=== PATIENT | male | born 1950 | race Caucasian/White ===

== ENCOUNTER 2023-01-08 08:36 | Outpatient (REF) | payer OTHER, SELFPAY | END 2023-01-08 08:37 | disposition home or self-care (01) | LOC: HO.HOSX 08:36 | PROVIDERS: Visit Provider Orthopaedic Surgery | DX: Z13.89 Encounter for screening for other disorder (principal) ==

== ENCOUNTER 2023-01-09 12:14 | Outpatient (AMB) | payer MEDICARE, SELFPAY ==
--- NOTE | 2023-01-09 12:35 | A.OFFVIS_ITS ---
Intake Intake Visit Reasons: New Patient - right knee pain Intake Note: Barney is a 72 year old male who presents today as a new patient for his right knee pain. He describes his pain as sharp and severe in nature. His pain has gotten worse over the last few years in spite of continued non operative treatments. He has done physical therapy for 12 weeks over the last 6 months which aggravated his pain. He has also tried Tylenol and anti-inflammatory medicines which gave him minimal relief. He has had multiple cortisone injections which gave him only mild relief. He has also had viscosupplementation injections which gave him very good relief. His last viscosupplementation injection was several years ago. He wishes to hold off on surgery for as long as possible. He denies any locking or giving way. Allergies codeine Allergy (Unknown, Verified 01/09/23 12:41) Unknown Medication List - Last Reconciled 01/09/23 by Amanuel Cooper MD lisinopril 20 mg PO DAILY lorazepam 0.5 mg PO DAILY PRN timolol maleate 0.5% 0 drps ophthalmic-Right BID HPI New Patient - right knee pain HPI Details 72-year-old male who presents in the office today, as a new patient, for an evaluation of right knee pain. The patient reports an ongoing achiness of many years. He states this has increased in the last 3 days. He reports his pain is along the lateral aspect of the right knee. He states his pain increases when going up stairs. He is interested in a cortisone injection while in the office today. Patient has a history of Gel injections with 4 years of relief. A history of cortisone injections with 5+ years of relief. Patient has a surgical history of left knee arthroscopy about 25 years ago. [facility] Medical History (Updated 01/09/23 @ 12:44 by Diego Randle) History of high blood pressure Social History (Updated 01/09/23 @ 12:44 by iDego Randle) Alcohol intake: former Tobacco use type: Cigar Cigarettes Per Day: 1 Current occupational status: retired Current occupation: right hand dominant Review of Systems Const All systems reviewed & are unremarkable except as noted in HPI and below Physical Exam Const Other: Well-nourished well-developed very friendly male awake alert and oriented x3 in no acute distress General: cooperative, healthy appearing, comfortable, no acute distress, well de veloped and alert Orientation/consciousness: patient oriented x3 HEENT Head: Yes normal to inspection, Yes normocephalic and Yes atraumatic Eyes General: appearance normal, both eyes and all related structures Resp Effort & Inspection: normal respiratory effort and able to speak in complete sentences Cardio Rate: regular rate Peripheral pulses: Peripheral pulses 2+ throughout GI Palpation (GI): Soft to palpation Skin Lesions: no lesions Rashes: no rashes Neuro General: patient oriented x3 Extrem Other: Bilateral lower extremity examination shows good capillary refill, no skin lesions noted, normal sensation light touch Right knee examination shows a minimal effusion, mild crepitus with range of motion, pain with range of motion, range of motion from -3 degrees to 115 degrees, no instability Results Reviewed Results Reviewed: X-rays of the patient's right knee taken today show moderate joint space narrowing most significant in the medial compartment, subchondral sclerosis, no acute bony abnormalities Assessment & Plan Assessment & Plan (1) Right knee pain: Code(s): M25.561 - Pain in right knee Plan: Mr. King presents with right knee pain due to degenerative joint disease. I had a lengthy discussion with the patient regarding the treatment options. He wishes to hold off on total knee replacement surgery for as long as possible. I agree with this plan. He has had multiple cortisone injections over the last few years which gave him minimal relief. Thus, I will see whether or not his insurance company will cover another viscosupplementation injection. I will see him back once the injection is available. If he fails continued non operative treatments we will further discuss the risks and benefits of right total knee replacement surgery. Feel free to call me at any time should questions regarding his orthopedic management arise. Thank you very much for asking me to see this very friendly gentleman. Orders: Orders XR knee RT 3V Today M25.561 - Pain in right knee XR knee RT 2V Today M25.569 - Pain in unspecified knee XR knee standing BI Today M25.569 - Pain in unspecified knee Patient Instructions: Scribed for Sherrie Lawton PA-C by Hermelinda Moreno outside medical sales representative, on 01/09/2023 at 12:21 pm, EST. Your attestation Coding Level of Care Code Est Pt Level 2 (22640) Diagnoses Right knee pain M25.201
== END 2023-01-09 13:19 | disposition home or self-care (01) ==
PROVIDERS: PCP Internal Medicine; Visit Provider Physician Assistant
DX: M25.561 Pain in right knee (principal)
CPT/HCPCS: 99202

== ENCOUNTER 2023-01-09 12:25 | Outpatient (REF) | payer MEDICARE, SELFPAY ==
--- NOTE | ~2023-01-09 | XR_ITS ---
Examination: X-ray knee, right INDICATION: Pain in unspecified knee. COMPARISON: None. TECHNIQUE: Bilateral upright views of both knees and lateral and sunrise views of the right knee FINDINGS: No displaced fracture. There are moderate degenerative changes in the right knee greatest in the medial compartment with cartilage space loss. Small marginal osteophyte formation. There is no joint effusion. Mild to moderate degenerative changes in the left medial compartment. XR/XR knee RT 2V IMPRESSION: Moderate degenerative changes in the right knee greatest in the medial compartment.
--- NOTE | ~2023-01-09 | XR_ITS ---
Examination: X-ray knee, right INDICATION: Pain in unspecified knee. COMPARISON: None. TECHNIQUE: Bilateral upright views of both knees and lateral and sunrise views of the right knee FINDINGS: No displaced fracture. There are moderate degenerative changes in the right knee greatest in the medial compartment with cartilage space loss. Small marginal osteophyte formation. There is no joint effusion. Mild to moderate degenerative changes in the left medial compartment. XR/XR knee standing BI IMPRESSION: Moderate degenerative changes in the right knee greatest in the medial compartment.
== END 2023-01-09 12:26 | disposition home or self-care (01) ==
LOC: HO.HOSX 12:25
PROVIDERS: Visit Provider Physician Assistant
DX: M25.561 Pain in right knee (principal)
CPT/HCPCS: 73560; 73565

== ENCOUNTER 2023-02-07 13:16 | Outpatient (AMB) | payer MEDICARE, SELFPAY ==
--- NOTE | 2023-02-07 13:23 | MHC.OFFVIS ---
Intake Intake Visit Reasons: OV-Euflexxa #1, Right Knee Intake Note: Barney is a 72 year old male who presents with complaints of progressively worsening right knee pain. He describes his pain as sharp in nature. His pain has gotten worse over the last year in spite of continued non operative treatments. He has had cortisone injections in the past which gave him minimal relief. He has also had viscosupplementation injections which gave him good relief. He has tried Tylenol and anti-inflammatory medicines which gave him only mild relief. He has also done physical therapy exercises which aggravated his pain. He wishes to hold off on surgery for as long as possible. Allergies codeine Allergy (Unknown, Verified 02/07/23 13:30) Unknown Medication List - Last Reconciled 02/07/23 by Amanuel Cooper MD lisinopril 20 mg PO DAILY lorazepam 0.5 mg PO DAILY PRN timolol maleate 0.5% 0 drps ophthalmic-Right BID [facility] Medical History (Updated 02/07/23 @ 13:54 by Amanuel Cooper MD) History of high blood pressure Social History (Updated 01/09/23 @ 12:44 by Diego Randle) Alcohol intake: former Tobacco use type: Cigar Cigarettes Per Day: 1 Current occupational status: retired Current occupation: right hand dominant Physical Exam Const Other: Well-nourished well-developed very friendly male awake alert and oriented x3 in no acute distress Extrem Other: Bilateral lower extremity examination shows good capillary refill, no skin lesions noted, normal sensation light touch Right knee examination shows a minimal effusion, palpable crepitus with range of motion, pain with range of motion, range of motion from -3 degrees to 115 degrees, no instability Office Procedures Joint Injection/Drain Joint Injection/Drain Primary Site: right knee Prep: site was prepped using aseptic technique Injected: 20 mg of (Euflexxa) and 1% plain lidocaine Procedure: The patient tolerated the procedure well Coding 99409 - Large joint Procedure code (CPT) selection complete Results Reviewed Results Reviewed: 02/07/23 13:21 Hyaluronate Sodium [Euflexxa] 20 mg INTRAARTIC .STK-MED ONE Lidocaine HCl 2 % MPF [Xylocaine 2 % MPF] 5 ml .ROUTE .STK-MED ONE X-rays of the patient's right knee show joint space narrowing, subchondral sclerosis, no acute bony abnormalities Assessment & Plan Assessment & Plan (1) Arthritis of right knee: Code(s): M17.11 - Unilateral primary osteoarthritis, right knee Plan: Mr. King presents with progressively worsening right knee pain due to degenerative joint disease. I had a lengthy discussion with the patient regarding the treatment options. The patient has not gotten good relief from cortisone injections in the past. He has gotten relief from viscosupplementation injections. Thus, the risks and benefits of a viscosupplementation series of injections were discussed at length with the patient. The patient wished to proceed. The patient tolerated the injection well. He will continue with his activity modifications. He will follow-up as instructed. Feel free to call me at any time should questions regarding his orthopedic management arise. I spent 22 minutes in reviewing the patient's records and imaging studies, seeing the patient and documenting in the medical record. Orders: Orders AMB Joint Injection/Aspiration Today M17.11 - Unilateral primary osteoarthritis, right knee Coding Level of Care Code Est Pt Level 2 (61489) Diagnoses Arthritis of right knee M17.11 CPT Codes Coding - 80945 Large joint: 61419 - Large joint ([id number])
== END 2023-02-07 13:53 | disposition home or self-care (01) ==
PROVIDERS: PCP Internal Medicine; Visit Provider Orthopaedic Surgery
DX: M17.11 Unilateral primary osteoarthritis, right knee (principal)
CPT/HCPCS: 20610; 99214

== ENCOUNTER → 2023-02-07 13:16 | Outpatient (BNVA) | payer MEDICARE, SELFPAY | PROVIDERS: PCP Internal Medicine; Visit Provider Orthopaedic Surgery | DX: M17.11 Unilateral primary osteoarthritis, right knee (principal) | CPT/HCPCS: 20610; J7323 ==

== ENCOUNTER 2023-02-14 13:14 | Outpatient (AMB) | payer MEDICARE, SELFPAY ==
--- NOTE | 2023-02-14 13:17 | MHC.OFFVIS ---
Intake Intake Visit Reasons: OV-Euflexxa #2, Right Knee Intake Note: Barney is a 72 year old male who presnets today for his second Euflexxa Injection. He states that he op mild relief from his 1st injection last week. He denies any fevers or chills. Allergies codeine Allergy (Unknown, Verified 02/07/23 13:30) Unknown [facility] Medical History (Updated 02/07/23 @ 13:54 by Amanuel Cooper MD) History of high blood pressure Social History (Updated 01/09/23 @ 12:44 by Diego Randle) Alcohol intake: former Tobacco use type: Cigar Cigarettes Per Day: 1 Current occupational status: retired Current occupation: right hand dominant Physical Exam Const Other: Well-nourished well-developed very friendly male awake alert and oriented x3 in no acute distress Extrem Other: Right knee examination shows a minimal effusion, palpable crepitus with range of motion, pain with range of motion, no instability Office Procedures Joint Injection/Drain Joint Injection/Drain Primary Site: right knee Prep: site was prepped using aseptic technique Injected: 20 mg of (Euflexxa) and 1% plain lidocaine Procedure: The patient tolerated the procedure well Coding - Large joint Procedure code (CPT) selection complete Results Reviewed Results Reviewed: 02/14/23 13:14 Hyaluronate Sodium [Euflexxa] 20 mg INTRAARTIC .STK-MED ONE Lidocaine HCl 2 % MPF [Xylocaine 2 % MPF] 5 ml .ROUTE .STK-MED ONE Assessment & Plan Assessment & Plan (1) Arthritis of right knee: Code(s): M17.11 - Unilateral primary osteoarthritis, right knee Plan: Mr. King presents with right knee pain due to degenerative joint disease. The risks and benefits of a 2nd Euflexxa injection were discussed at length with the patient. The patient wished to proceed. He tolerated the injection well. He will continue with his home exercise program. He will follow-up as scheduled. Feel free to call me at any time should questions regarding his orthopedic management arise. I spent 20 minutes in reviewing the patient's records and imaging studies, seeing the patient and documenting in the medical record. Orders: Orders AMB Joint Injection/Aspiration Today M17.11 - Unilateral primary osteoarthritis, right knee Coding Level of Care Code Procedure Only Diagnoses Arthritis of right knee M17.11 CPT Codes Coding - Large joint: 76711 - Large joint ([id number])
== END 2023-02-14 13:34 | disposition home or self-care (01) ==
PROVIDERS: PCP Internal Medicine; Visit Provider Orthopaedic Surgery
DX: M17.11 Unilateral primary osteoarthritis, right knee (principal)
CPT/HCPCS: 20610

== ENCOUNTER → 2023-02-14 13:14 | Outpatient (BNVA) | payer MEDICARE, SELFPAY | PROVIDERS: PCP Internal Medicine; Visit Provider Orthopaedic Surgery | DX: M17.11 Unilateral primary osteoarthritis, right knee (principal); I10 Essential (primary) hypertension | CPT/HCPCS: 20610; J7323 ==

== ENCOUNTER 2023-02-21 13:18 | Outpatient (AMB) | payer MEDICARE, SELFPAY ==
--- NOTE | 2023-02-21 14:03 | MHC.OFFVIS ---
Intake Intake Visit Reasons: OV-Euflexxa #3, Right Knee Intake Note: Mr. King presents for routine follow-up after undergoing to Euflexxa injections given into his right knee. He states that he has gotten fairly good relief from the injections. He denies any fevers or chills. Allergies codeine Allergy (Unknown, Verified 02/07/23 13:30) Unknown Medication List - Last Reconciled 02/21/23 by Amanuel Cooper MD lisinopril 20 mg PO DAILY lorazepam 0.5 mg PO DAILY PRN timolol maleate 0.5% 0 drps ophthalmic-Right BID [facility] Medical History (Updated 02/07/23 @ 13:54 by Amanuel Cooper MD) History of high blood pressure Social History (Updated 01/09/23 @ 12:44 by Diego Randle) Alcohol intake: former Tobacco use type: Cigar Cigarettes Per Day: 1 Current occupational status: retired Current occupation: right hand dominant Physical Exam Extrem Other: Physical examination of the patient's right knee shows a minimal effusion, palpable crepitus with range of motion, pain with range of motion, no instability Office Procedures Joint Injection/Drain Joint Injection/Drain Primary Site: right knee Prep: site was prepped using aseptic technique Injected: 20 mg of (Euflexxa) and 1% plain lidocaine Procedure: The patient tolerated the procedure well Coding 67800 - Large joint Procedure code (CPT) selection complete Results Reviewed Results Reviewed: 02/21/23 13:20 Lidocaine HCl 2 % MPF [Xylocaine 2 % MPF] 5 ml .ROUTE .STK-MED ONE 02/21/23 13:23 Hyaluronate Sodium [Euflexxa] 20 mg INTRAARTIC .STK-MED ONE X-rays of the patient's right knee show joint space narrowing, subchondral sclerosis, no acute bony abnormalities Assessment & Plan Assessment & Plan (1) Arthritis of right knee: Code(s): M17.11 - Unilateral primary osteoarthritis, right knee Plan: Mr. King presents with right knee pain due to degenerative joint disease. I had a lengthy discussion with the patient regarding the treatment options. The risks and benefits of a 3rd Euflexxa injection were discussed at length with the patient. The patient wished to proceed. He tolerated the injection well. He will continue with his exercise program. He will follow up with me on an as-needed basis should his symptoms not plateau at an unacceptable level over the next few months. If he fails continued non operative treatments we will further discuss the risks and benefits of surgical intervention. Feel free to call me at any time should questions regarding his orthopedic management arise. I spent 21 minutes in reviewing the patient's records and imaging studies, seeing the patient and documenting in the medical record. Orders: Orders AMB Joint Injection/Aspiration Today M17.11 - Unilateral primary osteoarthritis, right knee Coding Level of Care Code Procedure Only Diagnoses Arthritis of right knee M17.11 CPT Codes Coding - 66619 Large joint: 81539 - Large joint ([id number])
== END 2023-02-21 14:02 | disposition home or self-care (01) ==
PROVIDERS: PCP Internal Medicine; Visit Provider Orthopaedic Surgery
DX: M17.11 Unilateral primary osteoarthritis, right knee (principal)
CPT/HCPCS: 20610

== ENCOUNTER → 2023-02-21 13:18 | Outpatient (BNVA) | payer MEDICARE, SELFPAY | PROVIDERS: PCP Internal Medicine; Visit Provider Orthopaedic Surgery | DX: M17.11 Unilateral primary osteoarthritis, right knee (principal) | CPT/HCPCS: 20610; J7323 ==

== ENCOUNTER 2023-05-31 12:49 | Outpatient (AMB) | payer MEDICARE, SELFPAY ==
--- NOTE | 2023-05-31 12:51 | A.OFFVIS_ITS ---
Intake Intake Visit Reasons: OV-Right Knee pain Intake Note: Mr. King presents with complaints of right knee pain. The patient describes his pain as sharp in nature. He has had cortisone injections in the past which gave him minimal relief. He did have a series of 3 Euflexxa visc osupplementation injections given into his right knee earlier this year. Those injections gave him very good relief. He has tried Tylenol and anti- inflammatory medicines which gave him minimal relief. He has also done physical therapy exercises which aggravated his pain. He wishes to hold off on total knee replacement surgery for as long as possible. Allergies codeine Allergy (Unknown, Verified 05/31/23 12:56) Unknown Medication List - Last Reconciled 05/31/23 by Amanuel Cooper MD lisinopril 20 mg PO DAILY lorazepam 0.5 mg PO DAILY PRN timolol maleate 0.5% 0 drps ophthalmic-Right BID [facility] Medical History (Updated 02/07/23 @ 13:54 by Amanuel Cooper MD) History of high blood pressure Social History Alcohol intake: former Tobacco use type: Cigar Cigarettes Per Day: 1 Current occupational status: retired Current occupation: right hand dominant Physical Exam Const Other: Well-nourished well-developed very friendly male awake alert and oriented x3 in no acute distress Extrem Other: Bilateral lower extremity examination shows good capillary refill, no skin lesions noted, normal sensation light touch Right knee examination shows a minimal effusion, palpable crepitus with range of motion, pain with range of motion, range of motion from -3 degrees to 115 degrees, no instability Results Reviewed Results Reviewed: X-rays of the patient's right knee show joint space narrowing, subchondral sclerosis, no acute bony abnormalities Assessment & Plan Assessment & Plan (1) Arthritis of right knee: Code(s): M17.11 - Unilateral primary osteoarthritis, right knee Plan Mr. King presents with right knee pain due to degenerative joint disease. I had a lengthy discussion with the patient regarding the treatment options. He wishes to hold off on right total knee replacement surgery for as long as possible. I agree with this plan. The patient has not gotten good relief from cortisone injections in the past. Thus, I will see whether not the patient's insurance company will cover another series of viscosupplementation injections. I will see him back once the injections are available. Feel free to call me at any time should questions regarding his orthopedic management arise. I spent 22 minutes in reviewing the patient's records and imaging studies, seeing the patient and documenting in the medical record. Coding Level of Care Code Est Pt Level 2 (81651) Diagnoses Arthritis of right knee M17.11
== END 2023-05-31 13:16 | disposition home or self-care (01) ==
PROVIDERS: PCP Internal Medicine; Visit Provider Orthopaedic Surgery
DX: M17.11 Unilateral primary osteoarthritis, right knee (principal)
CPT/HCPCS: 99212

== ENCOUNTER → 2023-05-31 12:49 | Outpatient (BNVA) | payer MEDICARE, SELFPAY | PROVIDERS: PCP Internal Medicine; Visit Provider Orthopaedic Surgery | DX: M17.11 Unilateral primary osteoarthritis, right knee (principal) | CPT/HCPCS: 99212 ==

== ENCOUNTER 2023-09-05 13:03 | Outpatient (AMB) | payer MEDICARE, SELFPAY ==
--- NOTE | 2023-09-05 13:14 | MHC.OFFVIS ---
Intake Intake Visit Reasons: INJ - right knee Euflexxa gel injection #1 Intake Note: Barney is a 73 year old male who presents for his #1 Right knee euflexxa gel injection. The patient describes his right knee pain as sharp in nature. His pain has gotten somewhat worse over the last few years in spite of continued non operative treatments. Has had viscosupplementation injections which gave him good relief. Has also had cortisone injections which gave him minimal relief. He has tried Tylenol and anti-inflammatory medicines which gave him only mild relief. He wishes to hold off on right total knee replacement surgery for as long as possible. Allergies codeine Allergy (Unknown, Verified 09/05/23 13:15) Unknown [facility] Medical History History of high blood pressure Social History Alcohol intake: former Tobacco use type: Cigar Cigarettes Per Day: 1 Current occupational status: retired Current occupation: right hand dominant Physical Exam Const Other: Well-nourished well-developed very friendly male awake alert and oriented x3 in no acute distress Extrem Other: Bilateral lower extremity examination shows good capillary refill, no skin lesions noted, normal sensation light touch Right knee examination shows a minimal effusion, palpable crepitus with range of motion, pain with range of motion, no instability Office Procedures Joint Injection/Drain Joint Injection/Drain Primary Site: right knee Prep: site was prepped using aseptic technique Injected: 20 mg of (Euflexxa ) and 1% plain lidocaine Procedure: The patient tolerated the procedure well Coding 12029 - Large joint Procedure code (CPT) selection complete Results Reviewed Results Reviewed: X-rays of the patient's right knee show joint space narrowing, subchondral sclerosis, no acute bony abnormalities Assessment & Plan Assessment & Plan (1) Arthritis of right knee: Code(s): M17.11 - Unilateral primary osteoarthritis, right knee Plan Mr. King presents with right knee pain due to degenerative joint disease. I had a lengthy discussion with the patient regarding the treatment options. He wishes to hold off on surgery for as long as possible. I agree with this plan. Has not gotten good relief from cortisone injections in the past. Thus, the risks and benefits of a right knee viscosupplementation injection were discussed at length with the patient. The patient wished to proceed. He tolerated the Euflexxa injection well. He will follow up next week as scheduled. Feel free to call me at any time should questions regarding his orthopedic management arise. I spent 19 minutes in reviewing the patient's records and imaging studies, seeing the patient and documenting in the medical record. Orders: Orders AMB Joint Injection/Aspiration Today M17.11 - Unilateral primary osteoarthritis, right knee Coding Level of Care Code Est Pt Level 2 (92038) Diagnoses Arthritis of right knee M17.11 CPT Codes Coding - 72343 Large joint: 98627 - Large joint ([id number])
== END 2023-09-05 13:27 | disposition home or self-care (01) ==
PROVIDERS: PCP Internal Medicine; Visit Provider Orthopaedic Surgery
DX: M17.11 Unilateral primary osteoarthritis, right knee (principal)
CPT/HCPCS: 20610

== ENCOUNTER → 2023-09-05 13:03 | Outpatient (BNVA) | payer MEDICARE, SELFPAY | PROVIDERS: PCP Internal Medicine; Visit Provider Orthopaedic Surgery | DX: M17.11 Unilateral primary osteoarthritis, right knee (principal) | CPT/HCPCS: 20610; J7323 ==

== ENCOUNTER 2023-09-12 13:03 | Outpatient (AMB) | payer MEDICARE, SELFPAY ==
--- NOTE | 2023-09-12 13:07 | MHC.OFFVIS ---
Intake Intake Visit Reasons: Inj - Right Knee Euflexxa Gel Inj #2 Intake Note: Barney is a 73 year old male who presents with Right knee pain. Patient reports he recieved his Right knee #1 Euflexxa gel injection on 09/05/2023 and would like to proceed with his #2 injection. He states he did have some swelling a couple a days ago but it has gotten better. He continues to go to the gym to exercise. Allergies codeine Allergy (Unknown, Verified 09/12/23 13:15) Unknown Medication List - Last Reconciled 09/12/23 by Amanuel Cooper MD lisinopril 20 mg PO DAILY lorazepam 0.5 mg PO DAILY PRN timolol maleate 0.5% 0 drps ophthalmic-Right BID [facility] Medical History History of high blood pressure Social History Alcohol intake: former Tobacco use type: Cigar Cigarettes Per Day: 1 Current occupational status: retired Current occupation: right hand dominant Physical Exam Const Other: Well-nourished well-developed very friendly male awake alert and oriented x3 in no acute distress Extrem Other: Bilateral lower extremity examination shows good capillary refill, no skin lesions noted, normal sensation light touch Right knee examination shows a minimal effusion, palpable crepitus with range of motion, pain with range of motion, no instability Office Procedures Joint Injection/Drain Joint Injection/Drain Primary Site: right knee Prep: site was prepped using aseptic technique Injected: 20 mg of (Euflexxa viscosupplementation) and 1% plain lidocaine Procedure: The patient tolerated the procedure well Coding 49544 - Large joint Procedure code (CPT) selection complete Assessment & Plan Assessment & Plan (1) Arthritis of right knee: Code(s): M17.11 - Unilateral primary osteoarthritis, right knee Plan Mr. King presents with right knee pain due to degenerative joint disease. The risks and benefits of a 2nd Euflexxa viscosupplementation injection were discussed at length with the patient. The patient wished to proceed. Tolerated the injection well. He will continue with his exercise program. He will follow up next week as scheduled for his 3rd injection. Feel free to call me at any time should questions regarding his orthopedic management arise. Orders: Orders AMB Joint Injection/Aspiration Today M17.11 - Unilateral primary osteoarthritis, right knee Coding Level of Care Code Procedure Only Diagnoses Arthritis of right knee M17.11 CPT Codes Coding - 67538 Large joint: 07760 - Large joint ([id number])
== END 2023-09-12 13:37 | disposition home or self-care (01) ==
PROVIDERS: PCP Internal Medicine; Visit Provider Orthopaedic Surgery
DX: M17.11 Unilateral primary osteoarthritis, right knee (principal)
CPT/HCPCS: 20610

== ENCOUNTER → 2023-09-12 13:03 | Outpatient (BNVA) | payer MEDICARE, SELFPAY | PROVIDERS: PCP Internal Medicine; Visit Provider Orthopaedic Surgery | DX: M17.11 Unilateral primary osteoarthritis, right knee (principal); Z79.899 Other long term (current) drug therapy | CPT/HCPCS: 20610; J7323 ==

== ENCOUNTER 2023-09-19 13:03 | Outpatient (AMB) | payer MEDICARE, SELFPAY ==
--- NOTE | 2023-09-19 13:22 | A.OFFVIS_ITS ---
Intake Vital Signs 09/19/23 13:26 Height 5 ft 5 in Weight 170 lb BMI 28.3 Intake Visit Reasons: Inj - Right Knee Euflexxa Gel Inj #3 Intake Note: Barney is a 73 year old male who presents with Right knee pain. Patient reports he had a #2 Right knee Euflexxa gel injection on 09/12/2023. He would like to get his #3 Right knee Euflexxa gel injection today. Allergies codeine Allergy (Unknown, Verified 09/12/23 13:15) Unknown [facility], [facility] Medical History History of high blood pressure Social History Alcohol intake: former Tobacco use type: Cigar Cigarettes Per Day: 1 Current occupational status: retired Current occupation: right hand dominant Physical Exam Vital Signs: BMI result Body Mass Index 28.3 Extrem Other: Right knee examination shows a minimal effusion, palpable crepitus with range of motion, pain with range of motion, no instability Office Procedures Joint Injection/Drain Joint Injection/Drain Primary Site: right knee Prep: site was prepped using aseptic technique Injected: 20 mg of (Euflexxa viscosupplementation) and 1% plain lidocaine Procedure: The patient tolerated the procedure well Coding - Large joint Procedure code (CPT) selection complete Assessment & Plan Assessment & Plan (1) Arthritis of right knee: Code(s): M17.11 - Unilateral primary osteoarthritis, right knee Plan Mr. King presents with right knee pain due to degenerative joint disease. The risks and benefits of a 3rd Euflexxa injection were discussed at length with the patient. The patient wished to proceed with the injection. He tolerated the injection well. He will continue with his exercise program. He will follow up with me on an as-needed basis should his symptoms not plateau at an unacceptable level over the next few months. Feel free to call me at any time should questions regarding his orthopedic management arise. Orders: Orders AMB Joint Injection/Aspiration Today M17.11 - Unilateral primary osteoarthritis, right knee Coding Level of Care Code Procedure Only Diagnoses Arthritis of right knee M17.11 CPT Codes Coding - Large joint: 29392 - Large joint ([id number])
[2023-09-19 13:26] VITALS: BMI 28.3
== END 2023-09-19 13:46 | disposition home or self-care (01) ==
PROVIDERS: PCP Internal Medicine; Visit Provider Orthopaedic Surgery
DX: M17.11 Unilateral primary osteoarthritis, right knee (principal)
CPT/HCPCS: 20610

== ENCOUNTER → 2023-09-19 13:03 | Outpatient (BNVA) | payer MEDICARE, SELFPAY | PROVIDERS: PCP Internal Medicine; Visit Provider Orthopaedic Surgery | DX: M17.11 Unilateral primary osteoarthritis, right knee (principal); I10 Essential (primary) hypertension | CPT/HCPCS: 20610; J7323 ==

== ENCOUNTER 2023-12-20 11:16 | Outpatient (AMB) | payer MEDICARE, SELFPAY ==
--- NOTE | 2023-12-20 11:28 | MHC.OFFVIS ---
Intake Visit Reasons: Arthritis of right knee Intake Note: Mr. King is a 73-year-old male who presents with complaints of progressively worsening right knee pain. Describes his pain as sharp in nature. His pain has gotten worse in spite of continued non operative treatments. He has done physical therapy exercises which aggravated his pain. He has also tried Tylenol and anti-inflammatory medicines which gave him minimal relief. He has had cortisone injections in the past which gave him no relief. He has also had viscosupplementation injections which gave him fairly good relief. He wishes to hold off on right total knee replacement surgery for as long as possible. He has tried and failed the last 3 months of a home exercise program as well as anti-inflammatory medicines and Tylenol. The patient states that his right knee pain is interfering with his activities of daily living and his ability to sleep well through the night. Allergies codeine Allergy (Unknown, Verified 09/12/23 13:15) Unknown Medication List - Last Reconciled 12/20/23 by Amanuel Cooper MD lisinopril 20 mg PO DAILY lorazepam 0.5 mg PO DAILY PRN timolol maleate 0.5% 0 drps ophthalmic-Right BID [facility] Medical History History of high blood pressure Social History Alcohol intake: former Tobacco use type: Cigar Cigarettes Per Day: 1 Current occupational status: retired Current occupation: right hand dominant Physical Exam Const Other: Well-nourished well-developed very friendly male awake alert and oriented x3 in no acute distress Extrem Other: Bilateral lower extremity examination shows good capillary refill, no skin lesions noted, normal sensation light touch Right knee examination shows a minimal effusion, palpable crepitus with range of motion, pain with range of motion, range of motion from -3 degrees to 115 degrees, no instability Results Reviewed Results Reviewed: X-rays of the patient's right knee show joint space narrowing, subchondral sclerosis, no acute bony abnormalities Assessment & Plan Assessment & Plan (1) Arthritis of right knee: Code(s): M17.11 - Unilateral primary osteoarthritis, right knee Category: Medical Plan Mr. King presents with progressively worsening right knee pain due to degenerative joint disease. I had a lengthy discussion with the patient regarding the treatment options. He wishes to hold off on right total knee replacement surgery for as long as possible. I agree with this plan. The patient has failed the last 3 months of conservative treatment. He has had cortisone injections in the past which gave him minimal relief. He has gotten good relief from viscosupplementation injections. Thus, I will order another series of 3 Euflexxa injections for his right knee. I will see him back once the injections are available. Feel free to call me at any time should questions regarding his orthopedic management arise. I spent 22 minutes in reviewing the patient's records and imaging studies, seeing the patient and documenting in the medical record. Coding Level of Care Code Est Pt Level 3 (36368) Diagnoses Arthritis of right knee M17.11
== END 2023-12-20 11:28 | disposition home or self-care (01) ==
PROVIDERS: PCP Internal Medicine; Visit Provider Orthopaedic Surgery
DX: M17.11 Unilateral primary osteoarthritis, right knee (principal)
CPT/HCPCS: 99213

== ENCOUNTER → 2023-12-20 11:16 | Outpatient (BNVA) | payer MEDICARE, SELFPAY | PROVIDERS: PCP Internal Medicine; Visit Provider Orthopaedic Surgery | DX: M17.11 Unilateral primary osteoarthritis, right knee (principal) | CPT/HCPCS: 99212 ==

== ENCOUNTER 2024-03-26 12:49 | Outpatient (AMB) | payer MEDICARE, SELFPAY ==
[2024-03-26 12:51] VITALS: BMI 28.3
--- NOTE | 2024-03-26 12:51 | MHC.OFFVIS ---
Vital Signs 03/26/24 12:51 Height 5 ft 5 in Weight 170 lb BMI 28.3 Intake Visit Reasons: Right Knee Euflexxa #1 Intake Note: Barney is a 73 year old male who presents with complaints of progressively worsening right knee pain. He describes his pain as sharp in nature. His pain has gotten worse over the last few months in spite of continued non operative treatments. He has cortisone injections in the past which gave him minimal relief. He has also done physical therapy exercises which aggravated his pain. He has tried Tylenol and anti-inflammatory medicines which gave him minimal relief. He states that his right knee pain is now interfering with his activities of daily living and his ability to sleep well through the night. He wishes to hold off on surgery for as long as possible. Allergies codeine Allergy (Unknown, Verified 09/12/23 13:15) Unknown Medication List - Last Reconciled 03/26/24 by Amanuel Cooper MD lisinopril 20 mg PO DAILY lorazepam 0.5 mg PO DAILY PRN timolol maleate 0.5% 0 drps ophthalmic-Right BID [facility] Medical History History of high blood pressure Social History Alcohol intake: former Tobacco use type: Cigar Cigarettes Per Day: 1 Current occupational status: retired Current occupation: right hand dominant Physical Exam Vital Signs: BMI result Body Mass Index 28.3 Const Other: Well-nourished well-developed very friendly male awake alert and oriented x3 in no acute distress Extrem Other: Bilateral lower extremity examination shows good capillary refill, no skin lesions noted, normal sensation light touch Right knee examination shows a minimal effusion, palpable crepitus with range of motion, pain with range of motion, no instability Office Procedures Joint Injection/Aspiration Joint Injection/Aspiration Primary Site: left knee Prep: site was prepped using aseptic technique Injected: 20 mg of (Euflexxa viscosupplementation) and 1% plain lidocaine Procedure: The patient tolerated the procedure well Coding 12546 - Large joint Procedure code (CPT) selection complete Results Reviewed Results Reviewed: X-rays of the patient's right knee taken previously show joint space narrowing, subchondral sclerosis, no acute bony abnormalities Assessment & Plan Assessment & Plan (1) Osteoarthritis of left knee: Code(s): M17.12 - Unilateral primary osteoarthritis, left knee Category: Medical Plan Mr. King presents with right knee pain due to osteoarthritis. I had a lengthy discussion with the patient regarding the treatment options. The risks and benefits of a series of Euflexxa viscosupplementation injections were discussed at length with the patient. The patient wished to proceed. He tolerated the injections well. He will continue with his home exercise program. Will follow up next week as scheduled. Feel free to call me at any time should questions regarding his orthopedic management arise. I spent 21 minutes in reviewing the patient's records and imaging studies, seeing the patient and documenting in the medical record. Orders: Orders AMB Joint Injection/Aspiration Today M17.12 - Unilateral primary osteoarthritis, left knee Coding Level of Care Code Est Pt Level 3 (50632) Complex EM visit Add On G2211 Diagnoses Osteoarthritis of left knee M17.12 CPT Codes Coding - 95552 Large joint: 94516 - Large joint ([id number])
== END 2024-03-26 13:17 | disposition home or self-care (01) ==
PROVIDERS: PCP Internal Medicine; Visit Provider Orthopaedic Surgery
DX: M17.12 Unilateral primary osteoarthritis, left knee (principal)
CPT/HCPCS: 20610; 99213

== ENCOUNTER → 2024-03-26 12:49 | Outpatient (BNVA) | payer MEDICARE, SELFPAY | PROVIDERS: PCP Internal Medicine; Visit Provider Orthopaedic Surgery | DX: M17.12 Unilateral primary osteoarthritis, left knee (principal) | CPT/HCPCS: 20610; 99212; J7323 ==

== ENCOUNTER 2024-04-02 13:05 | Outpatient (AMB) | payer MEDICARE, SELFPAY ==
[2024-04-02 13:07] VITALS: BMI 28.3
--- NOTE | 2024-04-02 13:07 | MHC.OFFVIS ---
Vital Signs 04/02/24 13:07 Height 5 ft 5 in Weight 170 lb BMI 28.3 Intake Visit Reasons: Right Knee Euflexxa #2 Intake Note: Barney is a 73 year old male that presents today for a Right Knee Euflexxa #2. Mild relief from the 1st injection. He continues with his home exercise program. Allergies codeine Allergy (Unknown, Verified 09/12/23 13:15) Unknown Medication List - Last Reconciled 04/02/24 by Amanuel Cooper MD lisinopril 20 mg PO DAILY lorazepam 0.5 mg PO DAILY PRN timolol maleate 0.5% 0 drps ophthalmic-Right BID [facility] Medical History History of high blood pressure Social History Alcohol intake: former Tobacco use type: Cigar Cigarettes Per Day: 1 Current occupational status: retired Current occupation: right hand dominant Physical Exam Vital Signs: BMI result Body Mass Index 28.3 Extrem Other: Right knee examination shows a minimal effusion, palpable crepitus with range of motion, pain with range of motion, no instability Office Procedures Joint Injection/Aspiration Joint Injection/Aspiration Primary Site: right knee Prep: site was prepped using aseptic technique Injected: 20 mg of (Euflexxa viscosupplementation) and 1% plain lidocaine Procedure: The patient tolerated the procedure well Coding 62476 - Large joint Procedure code (CPT) selection complete Results Reviewed Results Reviewed: X-rays of the patient's right knee taken previously show joint space narrowing, subchondral sclerosis, no acute bony abnormalities Assessment & Plan Assessment & Plan (1) Arthritis of right knee: Code(s): M17.11 - Unilateral primary osteoarthritis, right knee Category: Medical Plan Mr. King presents with right knee pain due to degenerative joint disease. The risks and benefits of the 2nd Euflexxa viscosupplementation injection were discussed at length with the patient. The patient wished proceed. He tolerated the injection well. He will continue with his home exercise program. He will follow up next week as scheduled. Feel free to call me at any time should questions regarding his orthopedic management arise. Orders: Orders AMB Joint Injection/Aspiration Today M17.11 - Unilateral primary osteoarthritis, right knee Coding Level of Care Code Procedure Only Diagnoses Arthritis of right knee M17.11 CPT Codes Coding - 84333 Large joint: 83380 - Large joint ([id number])
== END 2024-04-02 13:36 | disposition home or self-care (01) ==
PROVIDERS: PCP Internal Medicine; Visit Provider Orthopaedic Surgery
DX: M17.11 Unilateral primary osteoarthritis, right knee (principal)
CPT/HCPCS: 20610

== ENCOUNTER → 2024-04-02 13:05 | Outpatient (BNVA) | payer MEDICARE, SELFPAY | PROVIDERS: PCP Internal Medicine; Visit Provider Orthopaedic Surgery | DX: M17.11 Unilateral primary osteoarthritis, right knee (principal) | CPT/HCPCS: 20610; J2003; J7323 ==

== ENCOUNTER 2024-04-09 13:18 | Outpatient (AMB) | payer MEDICARE, SELFPAY ==
--- NOTE | 2024-04-09 13:20 | A.OFFVIS_ITS ---
Intake Visit Reasons: Right Knee Injection #3 Intake Note: Barney is a 73 year old male that presents to the office today for a Right Knee Euflexxa Injection #3. The patient states that he has gotten mild relief from the 1st 2 injections. He continues with his home exercise program. Allergies codeine Allergy (Unknown, Verified 04/09/24 13:20) Unknown Medication List - Last Reconciled 04/09/24 by Amanuel Cooper MD lisinopril 20 mg PO DAILY lorazepam 0.5 mg PO DAILY PRN timolol maleate 0.5% 0 drps ophthalmic-Right BID [facility] Medical History History of high blood pressure Social History Alcohol intake: former Tobacco use type: Cigar Cigarettes Per Day: 1 Current occupational status: retired Current occupation: right hand dominant Physical Exam Extrem Other: Right knee examination shows a minimal effusion, palpable crepitus with range of motion, pain with range of motion, no instability Office Procedures Joint Injection/Aspiration Joint Injection/Aspiration Primary Site: right knee Prep: site was prepped using aseptic technique Injected: 20 mg of (Euflexxa viscosupplementation) and 1% plain lidocaine Procedure: The patient tolerated the procedure well Coding - Large joint Procedure code (CPT) selection complete Assessment & Plan Assessment & Plan (1) Arthritis of right knee: Code(s): M17.11 - Unilateral primary osteoarthritis, right knee Category: Medical Plan Mr. King presents with right knee pain due to degenerative joint disease. The risks and benefits of a 3rd Euflexxa viscosupplementation injection were discussed at length with the patient. The patient wished to proceed. Tolerated the injection well. He will continue with his exercise program. He will follow up with me on an as-needed basis should his symptoms not plateau at an unacceptable level over the next few months. Feel free to call me at any time should questions regarding his orthopedic management arise. Orders: Orders AMB Joint Injection/Aspiration Today M17.11 - Unilateral primary osteoarthritis, right knee Coding Level of Care Code Procedure Only Diagnoses Arthritis of right knee M17.11 CPT Codes Coding - Large joint: 67321 - Large joint ([id number])
== END 2024-04-09 14:01 | disposition home or self-care (01) ==
PROVIDERS: PCP Internal Medicine; Visit Provider Orthopaedic Surgery
DX: M17.11 Unilateral primary osteoarthritis, right knee (principal)
CPT/HCPCS: 20610

== ENCOUNTER → 2024-04-09 13:18 | Outpatient (BNVA) | payer MEDICARE, SELFPAY | PROVIDERS: PCP Internal Medicine; Visit Provider Orthopaedic Surgery | DX: M17.11 Unilateral primary osteoarthritis, right knee (principal) | CPT/HCPCS: 20610; J2003; J7323 ==